=== PATIENT | female | born 1985 | race Two or more races ===

== ENCOUNTER 2017-07-22 09:49 | Emergency (ER) | payer SELFPAY ==
[~2017-07-22] VITALS: Ht 162.6 cm; Wt 53.6 kg
[2017-07-22] MEDS ORDERED: IBUPROFEN 200 MG TABLET ONE (10:40)
[2017-07-22] MEDS ORDERED: IBUPROFEN 200 MG TABLET PO ONE (11:00)
[2017-07-22 12:05] VITALS: BP 116/84
== END 2017-07-22 12:33 | disposition home or self-care (01) ==
LOC: ED 12:28
DX: S16.1XXA Strain of muscle, fascia and tendon at neck level, initial encounter (principal); S80.02XA Contusion of left knee, initial encounter; S00.81XA Abrasion of other part of head, initial encounter; S20.312A Abrasion of left front wall of thorax, initial encounter; V47.0XXA Car driver injured in collision with fixed or stationary object in nontraffic accident, initial encounter; Y93.89 Activity, other specified; Y92.89 Other specified places as the place of occurrence of the external cause; Y99.8 Other external cause status
CPT/HCPCS: 70486; 72125; 99284

== ENCOUNTER 2018-09-07 11:48 | Inpatient (IN) | payer MEDICAID ==
[~2018-09-07] VITALS: Ht 160 cm; Wt 64.0 kg
[2018-09-07] MEDS ORDERED: OXYTOCIN 30U/ 0.9% NaCL 500ML 500 ML IV ONE (20:28)
[2018-09-07] MEDS ORDERED: D5%-LACTATED RINGERS 1,000 ML IV SCH (20:28)
[2018-09-07] MEDS ORDERED: OXYTOCIN 30U/ 0.9% NaCL 500ML 500 ML IV PRN (20:28)
[2018-09-07] MEDS ORDERED: CALCIUM CARBONATE 500 MG TAB.CHEW PO PRN (20:30)
[2018-09-07] MEDS ORDERED: FENTANYL PF 100 MCG/2ML IVPush PRN (20:30)
[2018-09-07] MEDS ORDERED: ONDANSETRON 2MG/ML, 2ML IVPush PRN (20:30)
[2018-09-07] MEDS ORDERED: FENTANYL PF 100 MCG/2ML IV PRN (20:30)
[2018-09-07] MEDS ORDERED: TERBUTALINE 1 MG/ML, 1ML IVPush PRN (20:30)
[2018-09-07] MEDS: LACTATED RINGERS 1,000 ML IV SCH (20:46)
[2018-09-07] MEDS ORDERED: OXYTOCIN 30U/ 0.9% NaCL 500ML 500 ML ONE (20:49)
[2018-09-07] MEDS ORDERED: LIDOCAINE 1%, 20ML ONE (20:49)
[2018-09-07] MEDS ORDERED: MISOPROSTOL 25 MCG TABLET ONE (20:49)
[2018-09-07] MEDS ORDERED: MISOPROSTOL 200 MCG TABLET ONE (20:50)
[2018-09-07 21:27] LABS: MEAN CORPUSCULAR HGB CONC 34.4 g/dL (32.4-35.8); MEAN CORPUSCULAR VOLUME 98.9 fL (80-100); MEAN PLATELET VOLUME 9.6 fL (7.4-10.4); PLATELET COUNT 80 x10^3/uL (130-400); RED BLOOD COUNT 3.55 x10^6/uL (3.82-5.3); RED CELL DISTRIBUTION WIDTH 13.4 % (9.6-15.2)
[2018-09-07 21:28] LABS: MD YES
[2018-09-07 21:30] LABS: EOS#(MANUAL) 0.18 x10^3/uL (0.0-0.4); EOS% (MANUAL) 2 % (1-7); LYMPH#(MANUAL) 1.84 x10^3/uL (1-3.4); LYMPHS% (MANUAL) 20 % (22-44); MONOS#(MANUAL) 1.01 x10^3/uL (0.3-2.7); MONOS% (MANUAL) 11 % (2-9); REACTIVE LYMPHS # (MANUAL) 0.09 x10^3/uL (0-0); REACTIVE LYMPHS % (MANUAL) 1 % (0-0); SEG#(MANUAL) 6.07 x10^3/uL (1.8-6.8); SEGS% (MANUAL) 66 % (42-75)
[2018-09-07] MEDS ORDERED: MISOPROSTOL 25 MCG TABLET VG PRN (21:30)
[2018-09-07 21:31] LABS: <PLATELET ESTIMATE> DECREASED; <RBC MORPHOLOGY> NORMAL; LARGE PLATELETS 1+
[2018-09-08 01:35] LABS: MICROSCOPIC INDICATED
[2018-09-08 01:40] LABS: ALANINE AMINOTRANSFERASE 21 U/L (12-78); ALBUMIN 2.6 g/dL (3.4-5.0); ANION GAP 8 mmol/L (5-15); CALCIUM 8.1 mg/dL (8.5-10.1); CHLORIDE 111 mmol/L (98-107)
[2018-09-08 01:43] LABS: ALKALINE PHOSPHATASE 172 U/L (45-117); BILIRUBIN,TOTAL 0.1 mg/dL (0.2-1.0); TOTAL PROTEIN 6.1 g/dL (6.4-8.2)
[2018-09-08] MEDS: LACTATED RINGERS 1,000 ML IV SCH (02:47)
[2018-09-08] MEDS ORDERED: BUPIVACAINE 0.25% ONE ×2 (02:53→02:55)
[2018-09-08] MEDS ORDERED: FENTANYL PF 100 MCG/2ML ONE ×2 (02:53→02:55)
[2018-09-08] MEDS ORDERED: LIDOCAINE/PF 1.5%-EPI 1:200K, 30ML ONE (02:55)
[2018-09-08] MEDS ORDERED: FENTANYL/BUPIV./NS/PF 250 ML EPIDCONT ONE (02:55)
[2018-09-08] MEDS ORDERED: LACTATED RINGERS 1,000 ML IV SCH (03:31)
[2018-09-08] MEDS ORDERED: FENTANYL/BUPIV./NS/PF 250 ML EPIDCONT SCH (03:31)
[2018-09-08] MEDS ORDERED: EPHEDRINE 50 MG/ML, 1ML IVPush PRN (04:00)
[2018-09-08] MEDS ORDERED: LACTATED RINGERS 1,000 ML IVBOLUS PRN (04:00)
[2018-09-08] MEDS ORDERED: ONDANSETRON 2MG/ML, 2ML IVPush PRN (04:00)
[2018-09-08] MEDS ORDERED: IBUPROFEN 600 MG TABLET ONE (07:41)
[2018-09-08] MEDS ORDERED: OXYTOCIN 30U/ 0.9% NaCL 500ML 500 ML IV SCH (07:47)
[2018-09-08] MEDS: OXYTOCIN 30U/ 0.9% NaCL 500ML 500 ML IV SCH ×2 (07:53→17:47)
[2018-09-08] MEDS ORDERED: CALCIUM CARBONATE 500 MG TAB.CHEW PO PRN (08:00)
[2018-09-08] MEDS ORDERED: DOCUSATE 100 MG CAPSULE PO PRN (08:00)
[2018-09-08] MEDS ORDERED: ACETAMINOPHEN 325 MG TABLET PO PRN ×2 (08:00)
[2018-09-08] MEDS ORDERED: IBUPROFEN 600 MG TABLET PO PRN (08:00)
[2018-09-08] MEDS ORDERED: ONDANSETRON 2MG/ML, 2ML IV PRN (08:00)
[2018-09-08] MEDS ORDERED: OXYTOCIN 10 UNITS/ML, 1ML IM PRN (08:00)
[2018-09-08] MEDS ORDERED: METHYLERGONOVINE 0.2 MG/ML IM PRN (08:00)
[2018-09-08] MEDS ORDERED: MAGNESIUM HYDROXIDE 8%, 30ML UDC PO PRN (08:00)
[2018-09-08] MEDS ORDERED: OXYcodone/APAP 5/325MG TABLET PO PRN ×2 (08:00)
[2018-09-08] MEDS: PRENATAL VIT/IRON/FA 1 EACH TABLET PO SCH (09:00)
[2018-09-08 10:30] VITALS: BP 97/60
[2018-09-08 14:42] VITALS: BP 110/70
[2018-09-08 15:53] LABS: MEAN CORPUSCULAR HEMOGLOBIN 34.2 pg (27.0-34.8); MEAN CORPUSCULAR HGB CONC 34.5 g/dL (32.4-35.8); MEAN CORPUSCULAR VOLUME 98.9 fL (80-100); MEAN PLATELET VOLUME 10.4 fL (7.4-10.4); PLATELET COUNT 89 x10^3/uL (130-400); RED BLOOD COUNT 3.52 x10^6/uL (3.82-5.3); RED CELL DISTRIBUTION WIDTH 13.6 % (9.6-15.2)
[2018-09-08 16:45] LABS: MD YES
[2018-09-08 17:01] LABS: BAND#(MANUAL) 0.29 x10^3/uL; BANDS%(MANUAL) 3 % (0-7); EOS% (MANUAL) 1 % (1-7); LYMPH#(MANUAL) 1.46 x10^3/uL (1-3.4); LYMPHS% (MANUAL) 15 % (22-44); MONOS#(MANUAL) 0.58 x10^3/uL (0.3-2.7); MONOS% (MANUAL) 6 % (2-9); SEG#(MANUAL) 7.28 x10^3/uL (1.8-6.8); SEGS% (MANUAL) 75 % (42-75)
[2018-09-08 17:02] LABS: <PLATELET ESTIMATE> DECREASED; <RBC MORPHOLOGY> NORMAL; LARGE PLATELETS 1+
[2018-09-08 20:00] VITALS: BP 114/74
[2018-09-09 00:15] VITALS: BP 108/63
[2018-09-09] MEDS: OXYTOCIN 30U/ 0.9% NaCL 500ML 500 ML IV SCH (03:47)
[2018-09-09 04:45] VITALS: BP 107/65
[2018-09-09 07:50] VITALS: BP 109/72
[2018-09-09] MEDS: PRENATAL VIT/IRON/FA 1 EACH TABLET PO SCH (09:00)
[2018-09-09] MEDS ORDERED: OXYC-302 PO (09:33)
[2018-09-09] MEDS ORDERED: IBUP-1222 PO (09:33)
== END 2018-09-09 11:40 | disposition home or self-care (01) | DRG 807 ==
LOC: LDIP 20:25 → 2NW 09-08 09:55
PROVIDERS: ADMIT Obstetrics & Gynecology; ATTEND Obstetrics & Gynecology
PROC: 10E0XZZ Delivery of Products of Conception, External Approach (ICD-10-PCS; principal; 2018-09-08)
PROC: 3E0R3BZ Introduction of Anesthetic Agent into Spinal Canal, Percutaneous Approach (ICD-10-PCS; 2018-09-08)
PROC: 00HU33Z Insertion of Infusion Device into Spinal Canal, Percutaneous Approach (ICD-10-PCS; 2018-09-08)
DX: O36.5930 Maternal care for other known or suspected poor fetal growth, third trimester, not applicable or unspecified (principal); Z37.0 Single live birth; Z3A.38 38 weeks gestation of pregnancy; O71.82 Other specified trauma to perineum and vulva
CPT/HCPCS: 36415; J7121; 80053; 81001; 85025; 85049; 86022; 86850; 86900; G0378; J3010; J3490; J2590; J7120